=== PATIENT | female | born 1955 | race American Indian/Alaskan Native ===

== ENCOUNTER 2019-01-23 19:01 | Emergency (ER) | payer OTHER ==
[2019-01-23 19:30] VITALS: RESP 18; TEMP 98.1; O2SAT 98
--- NOTE | 2019-01-23 19:41 | ED PDOC ---
HPI: General Adult Time Seen by Provider: 01/23/19 19:34 Chief Complaint (Nursing): Abnormal Labs Chief Complaint (Provider): Abnormal Labs History Per: Patient History/Exam Limitations: no limitations Additional Complaint(s): 63 year old female is referred to the emergency department by primary doctor for repeat blood work. Patient was at outpatient lab at this hospital on 01/20/19 for mild hyperkalemia with potassium level at 3.2 MMOL/L. She reports compliance with her Rx for hydrochlorothiazide which has known association with abnormal potassium. Otherwise, she denies any physical complaints including weakness, dizziness, muscle aches, chest pain, or shortness of breath. PCP: Dr. Royal Godfrey Past Medical History Reviewed: Historical Data, Nursing Documentation, Vital Signs Vital Signs: Last Vital Signs Temp 98.1 F 01/23/19 19:28 Pulse 84 01/23/19 19:28 Resp 18 01/23/19 19:28 BP 170/100 H 01/23/19 19:28 Pulse Ox 98 01/23/19 19:28 - Family History Family History: States: Unknown Family Hx - Home Medications Home Medications: Ambulatory Orders Medication Instructions Recorded Potassium Chloride 20 meq PO DAILY #4 tablet.er 01/23/19 - Allergies Allergies/Adverse Reactions: Allergies Allergy/AdvReac Type Severity Reaction Status Date / Time No Known Allergies Allergy Verified 01/23/19 19:27 Review of Systems ROS Statement: Except As Marked, All Systems Reviewed And Found Negative Cardiovascular: Negative for: Chest Pain Respiratory: Negative for: Shortness of Breath Musculoskeletal: Negative for: Other (muscle pain) Neurological: Negative for: Weakness, Dizziness Physical Exam - Reviewed Nursing Documentation Reviewed: Yes Vital Signs Reviewed: Yes - Physical Exam Appears: Positive for: No Acute Distress Skin: Positive for: Normal Color. Negative for: Pallor Cardiovascular/Chest: Positive for: Regular Rate, Rhythm. Negative for: Tachycardia Respiratory: Positive for: Normal Breath Sounds. Negative for: Respiratory Distress Pulses-Radial (L): 2+ Pulses-Radial (R): 2+ Neurological/Psych: Positive for: Awake, Alert, Normal Tone, Symmetric/Intact Strength (5/5), Oriented (x3). Negative for: Motor/Sensory Deficits - Laboratory Results Result Diagrams: 01/23/19 20:09 - ECG O2 Sat by Pulse Oximetry: 98 (RA) Pulse Ox Interpretation: Normal Medical Decision Making Medical Decision Making: Time: 1934 Initial Plan: repeat BMP to check potassium. K+ remains low, Mg checked and normal d/w PMD Dr Allison will initiate several days of K+ supplementation and she will see him in office friday for re-eval of medications given HCTZ likely wasting K+. Pt otherwise asymptomatic. Scribe Attestation: Documented by Keisha Chambers, acting as a scribe for Wagner Way III, DO. Provider Scribe Attestation: All medical record entries made by the Scribe were at my direction and personally dictated by me. I have reviewed the chart and agree that the record accurately reflects my personal performance of the history, physical exam, medical decision making, and the department course for this patient. I have also personally directed, reviewed, and agree with the discharge instructions and disposition. Disposition - Clinical Impression Clinical Impression: Hypokalemia, Hypertension - Disposition Referrals: Royal Godfrey MD [Family Provider] - Disposition: Routine/Home Disposition Time: 22:00 Condition: STABLE Additional Instructions: Supplement diet with one banana and one glass orange juice daily/ Call Dr Godfrey friday morning for followup and medication adjustment early next week. Take potassium 20meq daily for 4 days only. Prescriptions: Potassium Chloride 20 meq PO DAILY #4 tablet.er Instructions: High Blood Pressure in Adults, Hypokalemia (DC) Forms: [employer] ([place]er)
[2019-01-23 20:25] LABS: BLOOD UREA NITROGEN 20 mg/dl (7-17); CALCIUM 9.8 mg/dL (8.4-10.2); GFR NON-AFRICAN AMERICAN > 60
[2019-01-23] MEDS ORDERED: Potassium Chloride 20 mEq/15 ml LIQ UD PO ONE (20:32)
[2019-01-23] MEDS ORDERED: Potassium Chloride 20 mEq ER Tab PO ONE (22:04)
[2019-01-24 05:55] VITALS: BP 168/92; PULSE 77
== END 2019-01-23 22:50 | disposition home or self-care (01) ==
LOC: H.ER 19:01
DX: I10 Essential (primary) hypertension (principal); E87.6 Hypokalemia